=== PATIENT | female | born 1965 | race African-American/Black ===

== ENCOUNTER → 2020-05-22 13:51 | Outpatient (CLI) | payer OTHER, SELFPAY ==
--- NOTE | ~2020-05-22 | MM_ITS ---
EXAMINATION: MM screening [facility] BI w monique HISTORY: Screening mammogram TECHNIQUE: Craniocaudal and mediolateral oblique 3-D tomosynthesis images were obtained and synthetic 2-D images were generated. CAD analysis was submitted and interpreted. COMPARISON: 05/24/2019, 05/10/2019, 02/21/2018, 01/27/2017 BREAST PARENCHYMAL COMPOSITION: There are scattered areas of fibroglandular density. FINDINGS: There is no evidence of suspicious mass, calcification, or architectural distortion to sugg est malignancy in either breast. There has been no suspicious interval change. IMPRESSION: 1. No mammographic evidence of malignancy. 2. Recommend routine screening mammography in one year. BI-RADS Category 1: Negative Reviewed, dictated and finalized at location A. S AND SUPPORT CENTER AGENT
== END ==
PROVIDERS: Visit Provider Obstetrics & Gynecology
DX: Z12.31 Encounter for screening mammogram for malignant neoplasm of breast (principal)
CPT/HCPCS: 77063; 77067

== ENCOUNTER 2020-09-10 08:37 | Emergency (ER) | payer OTHER, SELFPAY ==
[2020-09-10 08:53] VITALS: BP 118/72; PULSE 99; RESP 16; TEMP 36.4; O2SAT 99
[2020-09-10 08:56] VITALS: BP 118/72; PULSE 99; RESP 16; TEMP 36.4; O2SAT 99
--- NOTE | 2020-09-10 09:09 | ED.GENADULT ---
HPI - General Adult General Chief complaint: Upper Respiratory Infection Stated complaint: cough Time Seen by Provider: 09/10/20 08:55 Source: patient and RN notes reviewed Mode of arrival: ambulatory Limitations: no limitations History of Present Illness HPI narrative: Patient presents today with a dry cough x1 year. Cough is worse at night when lying flat. States it also became worse when she was sweeping her garage yesterday. She takes dhen-iid-fljninl cough medicine occasionally, which does provide some relief at night to help her sleep. Denies history of diagnosed asthma or COPD. She is a non-smoker. She reports some intermittent shortness of breath with exertion, but states this is likely due to her weight gain over the past several months. Reports that she does experience occasional heartburn as well. She has not seen a primary care provider for this complaint. MD complaint: Cough Related Data Home Medications Medication Instructions Recorded Confirmed ergocalciferol (vitamin D2) 1,250 mcg PO WEEKLY 09/10/20 09/10/20 Allergies Allergy/AdvReac Type Severity Reaction Status Date / Time sweet tarts Allergy Unknown Unknown Uncoded 09/10/20 08:48 Review of Systems Review of Systems: Narrative: CONSTITUTIONAL: Denies body aches, fever, chills, or sweats. EYES: Denies visual changes, redness, or discharge. ENT: Denies rhinorrhea, congestion, sore throat, or otalgia. CARDIOVASCULAR: Denies chest pain, palpitations, or edema. RESPIRATORY: + Dry cough, shortness of breath with exertion GASTROINTESTINAL: Denies abdominal pain, nausea, vomiting, or diarrhea. GENITOURINARY: Denies dysuria or hematuria. SKIN: Denies rash, itching, or wounds. MUSCULOSKELETAL: Denies back pain, joint pain, or myalgia. NEUROLOGIC: Denies headache, numbness, tingling, or weakness. PSYCH: Denies depression or anxiety. PMFSH Social History Social History Gender identity (if verbalized by the patient): Female Comments At time of signature, I have reviewed and agree with nursing past medical, surgical, social and family history unless otherwise noted. Please see nursing chart for further information. There is no relevant family history pertinent to the presenting complaint Exam Narrative: Exam Narrative: GENERAL: Well-appearing, well-nourished, and in no acute distress. HEAD: Normocephalic, atraumatic. EYES: EOMI. No redness or drainage. Conjunctivae normal. ENT: Mucous membranes pink and moist. Nares clear. No rhinorrhea. TMs normal bilaterally. Throat normal. Uvula midline. NECK: Normal AROM. Supple. No lymphadenopathy. CHEST: No respiratory distress. Clear to auscultation. HEART: Regular rate and rhythm. No murmur appreciated. Normal peripheral pulses. EXTREMITIES: Normal range of motion. No edema. SKIN: Warm, dry, no rash. Capillary refill normal. Normal skin turgor. NEURO: No focal deficits. Alert and oriented x3. Gait steady. PSYCH: Normal affect. No signs of depression or anxiety. Course Vital Signs Vital signs: Vital Signs Temperature 97.6 F 09/10/20 08:53 Pulse Rate 99 09/10/20 08:53 Respiratory Rate 16 09/10/20 08:53 Blood Pressure 118/72 09/10/20 08:53 Pulse Oximetry 99 09/10/20 08:53 Temperature 97.6 F 09/10/20 08:56 Pulse Rate 99 09/10/20 08:56 Respiratory Rate 16 09/10/20 08:56 Blood Pressure 118/72 09/10/20 08:56 Pulse Oximetry 99 09/10/20 08:56 Reviewed Medical Decision Making Differential Diagnosis Differential Diagnosis: GERD, postnasal drainage, bronchitis, asthma Vital Signs Vital Signs: Vital Signs Temperature 97.6 F 09/10/20 08:53 Pulse Rate 99 09/10/20 08:53 Respiratory Rate 16 09/10/20 08:53 Blood Pressure 118/72 09/10/20 08:53 Pulse Oximetry 99 09/10/20 08:53 Temperature 97.6 F 09/10/20 08:56 Pulse Rate 99 09/10/20 08:56 Respiratory Rate 16 09/10/20 08:56 Bloo
== END 2020-09-10 09:15 | disposition home or self-care (01) ==
PROVIDERS: Emergency Provider Nurse Practitioner
DX: R05 Cough (principal)
CPT/HCPCS: 99213; G0463

== ENCOUNTER 2020-10-27 17:06 | Outpatient (CLI) | payer OTHER, SELFPAY | END 2020-10-27 17:07 | disposition home or self-care (01) | LOC: ANHCOVIDVC 17:06 | DX: Z23 Encounter for immunization (principal) | CPT/HCPCS: 0001A; 91300 ==

== ENCOUNTER 2020-11-17 17:02 | Outpatient (CLI) | payer OTHER, SELFPAY | END 2020-11-17 17:03 | disposition home or self-care (01) | LOC: ANHCOVIDVC 17:03 | DX: Z23 Encounter for immunization (principal) | CPT/HCPCS: 0002A; 91300 ==

== ENCOUNTER → 2021-05-26 07:46 | Outpatient (CLI) | payer OTHER, SELFPAY ==
--- NOTE | ~2021-05-26 | MM_ITS ---
EXAMINATION: MM screening jose BI w monique HISTORY: Screening mammogram TECHNIQUE: Craniocaudal and mediolateral oblique 3-D tomosynthesis images were obtained and synthetic 2-D images were generated. CAD analysis was submitted and interpreted. COMPARISON: 05/22/2020, 05/24/2019 BREAST PARENCHYMAL COMPOSITION: There are scattered areas of fibroglandular density. FINDINGS: RIGHT BREAST: There is possible architectural distortion in the posterior third of the upper outer qu adrant of the breast. LEFT BREAST: There is no evidence of suspicious mass, calcification, or architectural distortion to s uggest malignancy. There has been no significant interval change. IMPRESSION: 1. Possible right breast architectural distortion. 2. Additional mammographic views and possible breast ultrasound are recommended. BI-RADS Category 0: Incomplete: Needs additional imaging evaluation. Reviewed, dictated and finalized at location A. PROCUREMENT COORDINATOR IMPRESSION: 1. Possible right breast architectural distortion. 2. Additional mammographic views and possible breast ultrasound are recommended . BI-RADS Category 0: Incomplete: Needs additional imaging evaluation.
== END ==
PROVIDERS: Visit Provider Obstetrics & Gynecology
DX: Z12.31 Encounter for screening mammogram for malignant neoplasm of breast (principal); R92.8 Other abnormal and inconclusive findings on diagnostic imaging of breast
CPT/HCPCS: 77063; 77067

== ENCOUNTER 2021-06-03 14:28 | Emergency (ER) | payer OTHER, SELFPAY ==
[2021-06-03 14:41] VITALS: BP 125/73; PULSE 81; RESP 16; TEMP 36.9; O2SAT 99
--- NOTE | 2021-06-03 14:48 | ED.URI ---
HPI - URI/Sore Throat General Chief Complaint: Upper Respiratory Infection Stated Complaint: chest congestion Time Seen by Provider: 06/03/21 14:48 Source: patient, RN notes reviewed and old records reviewed Mode of arrival: ambulatory Limitations: no limitations History of Present Illness HPI Narrative: 55-year-old female presents to the [facility] with complaints of chest congestion, intermittent wheezing and a cough for over a year. Had been seen by her primary and here at the urgent care 1 time. Patient denies any chest pain. States she is having intermittent cough and it embarrasses her during amish. No abdominal pain, fevers, nausea, vomiting or diarrhea. Related Data Home Medications Medication Instructions Recorded Confirmed ergocalciferol (vitamin D2) 1,250 mcg PO WEEKLY 09/10/20 09/10/20 Allergies Allergy/AdvReac Type Severity Reaction Status Date / Time sweet tarts Allergy Unknown Unknown Uncoded 09/10/20 08:48 Review of Systems Review of Systems: All systems reviewed & are unremarkable except as noted in HPI and below Constitutional: Constitutional: Reports no additional constitutional complaints, Denies chills and Denies fever(s) Eyes: Eyes: Reports no additional eye complaints ENT: Reports system reviewed and no additional complaints, except as documented, Denies dizziness and Denies sore throat Cardiovascular: Cardiovascular: Reports no additional cardiovascular complaints, Denies chest pain, Denies rapid heart rate, Denies radiating jaw, neck or arm pain and Denies slow heart rate Respiratory: Respiratory: Reports as per HPI, Reports chest congestion (For a year and a half), Reports cough, Denies dyspnea and Reports wheezing (Intermittent) Gastrointestinal: Gastrointestinal: Reports no additional gastrointestinal complaints, Denies abdominal pain, Denies diarrhea, Denies nausea and Denies vomiting Musculoskeletal: Musculoskeletal: Reports no additional musculoskeletal complaints Integumentary/Breasts: Skin/Breast: Reports system reviewed and no additional complaints, except as docu Neurologic: Reports system reviewed and no additional complaints, except as documented Psychiatric: Psychiatric: Reports no additional psychiatric complaints Allergic/Immunologic: Allergic/Immunologic: Reports no additional allergic/immunologic complaints PMFSH Past Medical History Medical History (Updated 06/04/21 @ 20:12 by Natalia Seaman) Vitamin D deficiency Surgical History Surgical History (Updated 06/04/21 @ 20:12 by Natalia Seaman) No significant past surgical history Social History Social History Gender identity (if verbalized by the patient): Female Comments At the time of my signature, I reviewed and agree with the nursing past medical, surgical, social, and family history. There is no relevant family history pertinent to the patient complaint. Exam Const: General: healthy appearing, no acute distress and alert Nutritional Appearance: well nourished and obese Orientation/consciousness: patient oriented x3 Limitations: altered mental status HENMT: Head: normal to inspection Ears: external ears normal, TM's normal bilaterally and EAC's normal Eyes: Conjunctivae: conjunctivae normal Pupils: Equal, round and reactive pupils present Neck: Neck: normal visual inspection, no lymphadenopathy and no meningeal signs Chest: Chest palpation & inspection: normal inspection of the chest Resp: Effort & Inspection: normal respiratory effort and no use of accessory muscles Auscultation: clear to auscultation bilaterally, no crackles, no rales, no rhonchi and no wheezes Cardio: Rate: regular rate Rhythm: regular rhythm GI: Inspection: distended GI Palp: No Soft to palpation and No Tenderness to palpation present (GI) Back/Spine/Pelvis: Back: no CVA tenderness Skin: General skin exam: normal color Rashes: no rashes Neuro: General
[2021-06-03 14:55] VITALS: BP 125/73; PULSE 81; RESP 16; TEMP 36.9; O2SAT 99
== END 2021-06-03 15:09 | disposition home or self-care (01) ==
PROVIDERS: Emergency Provider Nurse Practitioner
DX: J40 Bronchitis, not specified as acute or chronic (principal); E55.9 Vitamin D deficiency, unspecified; K21.9 Gastro-esophageal reflux disease without esophagitis
CPT/HCPCS: 99213; G0463

== ENCOUNTER → 2021-07-27 07:46 | Outpatient (CLI) | payer OTHER, SELFPAY ==
--- NOTE | ~2021-07-27 | MMUS_ITS ---
EXAMINATION: MM diagnostic jose RT w monique, US breast RT limited HISTORY: Follow-up right breast architectural distortion TECHNIQUE: Additional 3-D tomosynthesis images of the right breast were performed and synthetic 2-D i mages were generated. CAD analysis was submitted and interpreted. High resolution Limited right breas t ultrasound was performed. COMPARISON: 05/26/2021 BREAST PARENCHYMAL COMPOSITION: The breasts are heterogenously dense, which may obscure small masses. FINDINGS: MAMMOGRAPHIC FINDINGS: There are no suspicious masses, calcifications or architectural distortion in the right breast to sug gest malignancy. ULTRASOUND: Limited right breast ultrasound: At 8:00, 7 cm from the nipple there is a 4 mm cyst. No other masses identified. No sonographic evidence for malignancy. IMPRESSION: 1. No evidence for malignancy in the right breast. 2. Routine yearly screening mammogram and regular clinical breast examination are recommended. BI-RADS Category 1: Negative Reviewed, dictated and finalized at location A. [facility] IMPRESSION: 1. No evidence for malignancy in the right breast. 2. Routine yearly screening mammogram and regular clinical breast examination a re recommended. BI-RADS Category 1: Negative
== END ==
PROVIDERS: PCP Obstetrics & Gynecology Gynecology; Visit Provider Obstetrics & Gynecology
DX: R92.8 Other abnormal and inconclusive findings on diagnostic imaging of breast (principal)
CPT/HCPCS: 76642; 77061; 77065; G0279

== ENCOUNTER 2021-11-08 01:50 | Day surgery (SDC) | payer OTHER, SELFPAY ==
[2021-10-31 13:30] VITALS: BMI 38.9
--- NOTE | 2021-11-08 08:04 | WPDANESEPPF ---
Anes - Initial Pre Proc Eval Procedure: Operation Date: 11/08/21 11:30 Proposed Procedures p Esophagogastroduodenoscopy - Robert Steel MD Date/Time: 11/08/21 08:04 Surgeon: Robert Steel MD Pre Op Diagnosis: chronic cough, GERD Patient Data Age: 56 Gender: F Height: 1.7 m Weight: 113 kg Allergies Allergy/AdvReac Type Severity Reaction Status Date / Time No Known Allergies Allergy Verified 11/08/21 10:28 Home Medications Medication Instructions Recorded Confirmed Type ergocalciferol (vitamin D2) 1,250 mcg PO WEEKLY 09/10/20 11/08/21 History albuterol sulfate 1 inh INHALATION Q4H PRN 10/31/21 11/08/21 History Patient hx anesthesia problems: none Family hx anesthesia problems: none Results Review: All pre-operative results and documents have been reviewed as part of the pre-operative evaluation. [facility] Past Medical History Medical History (Updated 11/08/21 @ 08:05 by Kendell Small MD) Asthma Chronic GERD Obesity Vitamin D deficiency Surgical History Surgical History (Updated 06/04/21 @ 20:12 by Natalia Seaman APRN) No significant past surgical history Family History Family History (Updated 10/11/21 @ 15:07 by Rosa Saucedo MA) Mother Asthma Social History Social History (Updated 10/11/21 @ 15:08 by Rosa Saucedo MA) Smoking status: Never smoker Alcohol intake: current Alcohol use details: occaionally Substance use: never Living arrangements: with family Gender identity (if verbalized by the patient): Female Spiritual care concerns: No Anes - Eval Final PreProcedure Day of Procedure 11/08/21 08:04 Patient weight: obese Heart: regular rate and rhythm Lungs: clear to auscultation and normal air movement Airway: Mallampati scale class II Neurological: alert and oriented Last oral intake: >/= 8 hours ASA classification: III Emergent: no Anesthetic plan: proceed Anesthesia type and monitoring: general GIVS Results Review: All pre-operative results and documents have been reviewed as part of the pre-operative evaluation. Informed Consent: The patient's anesthetic plan and its attendant risks and benefits were discussed with the patient/family/POA. Questions were solicited and answers provided to the satisfaction of the patient/family/POA.
[2021-11-08 10:29] VITALS: BP 109/72; PULSE 65; RESP 18; TEMP 36.6; O2SAT 100; BMI 41.1
[2021-11-08] MEDS: LACTATED RINGERS 1,000 ML 150 ML IV CONT (10:45)
--- NOTE | 2021-11-08 11:04 | WPDGICN ---
Assessment and Plan Assessment and plan (1) Asthma: Code(s): J45.909 - Unspecified asthma, uncomplicated Status: Acute Assessment and Plan: Patient's main problem appears to be asthma. This appears to have improved with inhaler that she takes intermittently. She had has had a vague abdominal discomfort raising the question whether acid reflux could cause her chronic coughing. Plan is for EGD to assess more thoroughly. She denies any heartburn and in fact epigastric discomfort is improved with inhaler. Making this very uncertain. EGD requested will be performed to exclude any obvious evidence for ongoing upper GI disease. (2) Nausea: Code(s): R11.0 - Nausea Status: Acute Assessment and Plan: Patient no longer has nausea. She reports vague epigastric discomfort that occurred a year ago before starting her inhaler. This is improved recently. Would recommend Tums and has a p.r.n. basis. Will reassess this at time of endoscopy. GI Consult Note Consult date/time: 11/08/21 11:04 HPI: Jorge Seals is a 56 year old female Referred for EGD. Patient reports that she has a chronic cough. She occasionally would cough up phlegm. She notes occasional stomach upset. With vague nausea. She recently was started on an inhaler and she states the nausea and upset stomach is gone away. Patient was referred to exclude GE reflux. She states originally she tried Tums with inconsistent results on abdominal discomfort. Since starting inhaler she no longer has abdominal discomfort but no longer uses Tums. She takes no other medications aside from vitamin-D and her inhaler. Review of Systems Review of Systems: All systems reviewed & are unremarkable except as noted in HPI and below PMFSH Past Medical History Medical History (Updated 11/08/21 @ 11:06 by Robert Steel MD) Asthma Chronic GERD Obesity Vitamin D deficiency Surgical History Surgical History (Updated 06/04/21 @ 20:12 by Natalia Seaman APRN) No significant past surgical history Family History Family History (Updated 10/11/21 @ 15:07 by Rosa Saucedo MA) Mother Asthma Social History Social History (Updated 10/11/21 @ 15:08 by Rosa Saucedo MA) Smoking status: Never smoker Alcohol intake: current Alcohol use details: occaionally Substance use: never Living arrangements: with family Gender identity (if verbalized by the patient): Female Spiritual care concerns: No Meds Home Medications and Allergies Home Medications Medication Instructions Recorded Confirmed Type ergocalciferol (vitamin D2) 1,250 mcg PO WEEKLY 09/10/20 11/08/21 History albuterol sulfate 1 inh INHALATION Q4H PRN 10/31/21 11/08/21 History Allergies Allergy/AdvReac Type Severity Reaction Status Date / Time No Known Allergies Allergy Verified 11/08/21 10:28 Vital Signs Vital Signs - 24 hr 11/08/21 10:29 Temperature 97.8 F Pulse Rate 65 Respiratory Rate 18 Blood Pressure 109/72 Pulse Oximetry 100 Exam Narrative: Physical exam reveals patient to be alert. Vital signs stable. HEENT exam is unremarkable. Patient is anicteric. Lungs are clear to auscultation and percussion. Heart is without murmur or extra sounds. Abdominal exam bowel sounds are present soft nontender with no hepatosplenomegaly. Rectal exam is deferred today.
[2021-11-08] MEDS: BENZOCAINE (*SP) 60 ML SPRAY CAN (HURRICAINE) 1 SPRAY MUCOUS MEM (12:01)
[2021-11-08 12:09] VITALS: BP 121/86; PULSE 85; RESP 23; O2SAT 100
[2021-11-08 12:20] VITALS: BP 119/83; PULSE 61; RESP 16; O2SAT 100
[2021-11-08 12:31] VITALS: BP 126/88; PULSE 63; RESP 14; O2SAT 100
== END 2021-11-08 12:41 | disposition home or self-care (01) ==
PROVIDERS: PCP Nurse Practitioner Family; Visit Provider Internal Medicine Gastroenterology
PROC: 0DJ08ZZ Inspection of Upper Intestinal Tract, Via Natural or Artificial Opening Endoscopic (ICD-10-PCS; CPT 43235; principal; 2021-11-08 11:30)
DX: R11.0 Nausea (principal); J45.909 Unspecified asthma, uncomplicated; K21.9 Gastro-esophageal reflux disease without esophagitis; E55.9 Vitamin D deficiency, unspecified; E66.01 Morbid (severe) obesity due to excess calories; Z68.41 Body mass index [BMI] 40.0-44.9, adult; Z79.51 Long term (current) use of inhaled steroids
CPT/HCPCS: 43239; 87081; J2704; J7120

== ENCOUNTER → 2022-06-15 10:18 | Outpatient (CLI) | payer OTHER, SELFPAY ==
--- NOTE | ~2022-06-15 | MM_ITS ---
EXAMINATION: MM screening [facility] BI w monique HISTORY: Screening mammogram TECHNIQUE: Craniocaudal and mediolateral oblique 3-D tomosynthesis images were obtained and synthetic 2-D images were generated. CAD analysis was submitted and interpreted. COMPARISON: 07/27/2021, 05/26/2021, 05/22/2020 BREAST PARENCHYMAL COMPOSITION: There are scattered areas of fibroglandular density. FINDINGS: No suspicious mass, calcification, or architectural distortion are identified in either navya ast to suggest malignancy. There has been no suspicious interval change. IMPRESSION: 1. No mammographic evidence of malignancy. 2. Recommend routine screening mammography in one year. BI-RADS Category 1: Negative Reviewed, dictated and finalized at location A. OYMENT PROGRAMS ANALYST
== END ==
PROVIDERS: PCP Nurse Practitioner Family; Visit Provider Nurse Practitioner
DX: Z12.31 Encounter for screening mammogram for malignant neoplasm of breast (principal)
CPT/HCPCS: 77063; 77067

== ENCOUNTER 2023-07-14 11:50 | Emergency (ER) | payer BC, SELFPAY ==
[2023-07-14 12:21] VITALS: BP 116/68; PULSE 80; RESP 16; TEMP 37.3; O2SAT 99
--- NOTE | 2023-07-14 13:25 | ED.GENADULT ---
HPI - General Adult General Chief complaint: Skin/Abscess/Foreign Body Stated complaint: Bump On Butt Time Seen by Provider: 07/14/23 13:25 Source: patient Mode of arrival: ambulatory Limitations: no limitations History of Present Illness HPI narrative: 57-year-old female presented for complaint of painful bump around rectum for 5 days. pain is worse with sitting. States she had an emesis yesterday. Rates pain 4/10. Using tucks pads, which she has left on overnight, as well as preparation cream and warm baths for symptoms. Denies history of abscesses or hemorrhoids. Denies painful defecation, bleeding from the site, hematochezia or melena, abdominal pain or fever. Related Data Home Medications Medication Instructions Recorded Confirmed ergocalciferol (vitamin D2) 1,250 1,250 mcg PO WEEKLY 09/10/20 11/08/21 mcg (50,000 unit) capsule albuterol sulfate 90 mcg/actuation 1 inh inhalation Q4H PRN Wheezing 10/31/21 11/08/21 aerosol inhaler Allergies Allergy/AdvReac Type Severity Reaction Status Date / Time No Known Allergies Allergy Verified 07/14/23 13:37 Review of Systems Review of Systems: CONSTITUTIONAL: Denies body aches, fever, chills, or sweats. CARDIOVASCULAR: Denies chest pain, palpitations, or edema. RESPIRATORY: Denies cough or dyspnea. GASTROINTESTINAL: Reports rectal pain, vomiting. Denies abdominal pain, nausea or diarrhea. GENITOURINARY: Denies dysuria or hematuria. SKIN: Denies rash, itching, or wounds. MUSCULOSKELETAL: Denies back pain, joint pain, or myalgia. NEUROLOGIC: Denies headache, numbness, tingling, or weakness. All systems reviewed & are unremarkable except as noted in HPI and below PMFSH Past Medical History Medical History Asthma Chronic GERD Obesity Vitamin D deficiency Surgical History Surgical History No significant past surgical history Family History Family History Mother Asthma Social History Social History Smoking status: Never smoker Alcohol intake: current Alcohol use details: occaionally Substance use: never Living arrangements: with family Occupation/Education: occupation Gender identity (if verbalized by the patient): Female Spiritual care concerns: No Comments At time of signature, I have reviewed and agree with nursing past medical, surgical, social and family history unless otherwise noted. Please see nursing chart for further information. There is no relevant family history pertinent to the presenting complaint Exam Narrative: GENERAL: Well-appearing in no acute distress. ENT: Mucous membranes pink and moist. NECK: Normal AROM. CHEST: No respiratory distress. Clear to auscultation. HEART: Regular rate and rhythm. ABDOMEN: Soft, nontender, nondistended, normal active bowel sounds. Rectal external hemorrhoid approx 1cm diameter left of anus, firm, nontender. No bleeding. SKIN: Warm, dry, no rash. Capillary refill normal. Normal skin turgor. NEURO: No focal deficits. Alert and oriented x3. Gait steady. PSYCH: Normal affect. Course Course Emergency Course: Patient is aware of diagnosis, understands and agrees to treatment plan. Anticipatory guidance given. Patient agrees to follow-up as directed and is aware of reasons to seek care at the emergency department. Portions of this record may have been created with voice recognition software Level of Care: Express Care Visit Vital Signs Vital signs: Vital Signs Temperature 99.2 F 07/14/23 12:21 Pulse Rate 80 07/14/23 12:21 Respiratory Rate 16 07/14/23 12:21 Blood Pressure 116/68 07/14/23 12:21 Pulse Oximetry 99 07/14/23 12:21 Oxygen Delivery Room Air 07/14/23 12:21 Temperature 99.2 F 07/14/23 12:21 Pulse Rate 80
== END 2023-07-14 13:50 | disposition home or self-care (01) ==
PROVIDERS: Emergency Provider Nurse Practitioner Family; PCP Nurse Practitioner Family
DX: K64.9 Unspecified hemorrhoids (principal); J45.909 Unspecified asthma, uncomplicated; K21.9 Gastro-esophageal reflux disease without esophagitis; E55.9 Vitamin D deficiency, unspecified; E66.9 Obesity, unspecified; Z68.35 Body mass index [BMI] 35.0-35.9, adult
CPT/HCPCS: 99213; G0463

== ENCOUNTER → 2023-09-13 11:29 | Outpatient (CLI) | payer BC, SELFPAY ==
--- NOTE | ~2023-09-13 | MM_ITS ---
EXAMINATION: MM screening jose BI w monique HISTORY: Screening mammogram TECHNIQUE: Craniocaudal and mediolateral oblique 3-D tomosynthesis images were obtained and synthetic 2-D images were generated. CAD analysis was submitted and interpreted. COMPARISON: 07/12/2022 bilateral screening mammogram 07/27/2021 diagnostic right mammogram and limited right breast ultrasound 05/26/2021 bilateral screening mammogram BREAST PARENCHYMAL COMPOSITION: There are scattered areas of fibroglandular density. FINDINGS: There is no evidence of suspicious mass, calcification, or architectural distortion to sugg est malignancy in either breast. There has been no suspicious interval change. IMPRESSION: 1. No mammographic evidence of malignancy. 2. Recommend routine screening mammography in one year. BI-RADS Category 1: Negative Reviewed, dictated and finalized at location A. OMER ENGAGEMENT MANAGER
== END ==
PROVIDERS: PCP Nurse Practitioner; Visit Provider Nurse Practitioner
DX: Z12.31 Encounter for screening mammogram for malignant neoplasm of breast (principal)
CPT/HCPCS: 77063; 77067

== ENCOUNTER 2024-09-18 09:54 | Outpatient (CLI) | payer OTHER, SELFPAY ==
--- NOTE | ~2024-09-18 | MM_ITS ---
EXAMINATION: MM screening jose BI w monique HISTORY: Screening mammogram TECHNIQUE: Craniocaudal and mediolateral oblique 3-D tomosynthesis images were obtained and synthetic 2-D images were generated. CAD analysis was submitted and interpreted. COMPARISON: 09/13/2023, 06/15/2022, 07/27/2021, 05/26/2021, 05/22/2020 BREAST PARENCHYMAL COMPOSITION:Not Dense. There are scattered areas of fibroglandular density. FINDINGS: No suspicious mass lesion or distortion seen in either breast. There are focal increased mi crocalcifications in the central, posterior right breast. No suspicious left breast calcifications. IMPRESSION: Focal increased calcifications in the posterior central right breast. Spot magnification views are re commended for further evaluation. BI-RADS Category 0: Incomplete: Needs additional imaging evaluation. Reviewed, dictated and finalized at [facility]. IMPRESSION: Focal increased calcifications in the posterior central right breast. Spot magn ification views are recommended for further evaluation. BI-RADS Category 0: Incomplete: Needs additional imaging evaluation.
== END 2024-09-18 09:55 | disposition home or self-care (01) ==
LOC: MICIMG 10:01
PROVIDERS: PCP Nurse Practitioner; Visit Provider Nurse Practitioner
DX: Z12.31 Encounter for screening mammogram for malignant neoplasm of breast (principal)
CPT/HCPCS: 77063; 77067

== ENCOUNTER 2024-11-05 07:50 | Outpatient (CLI) | payer OTHER, SELFPAY ==
--- NOTE | ~2024-11-05 | MM_ITS ---
EXAMINATION: MM diagnostic jose RT w monique HISTORY: Follow-up right breast calcifications TECHNIQUE: Additional 3-D tomosynthesis images of the right breast were performed and synthetic 2-D i mages were generated. CAD analysis was submitted and interpreted. COMPARISON: Comparison to multiple prior studies sequentially, with oldest reviewed study dated 03/2020. BREAST PARENCHYMAL COMPOSITION: Not dense: There are scattered areas of fibroglandular density. FINDINGS: There are clustered indeterminate calcifications in the lower inner quadrant of the right b reast, posterior third which are most likely benign. There are no suspicious masses or architectural distortion. IMPRESSION: 1. Probable benign right core breast calcification in the lower inner quadrant posteriorly. 2. Recommend 6 month follow-up diagnostic right mammogram BI-RADS category 3, probably benign findings. Reviewed, dictated and finalized at location A.
== END 2024-11-05 07:51 | disposition home or self-care (01) ==
LOC: MICIMG 07:51
PROVIDERS: PCP Obstetrics & Gynecology Gynecology; Visit Provider Obstetrics & Gynecology Gynecology
DX: R92.8 Other abnormal and inconclusive findings on diagnostic imaging of breast (principal)
CPT/HCPCS: 77061; 77065; G0279